=== PATIENT | female | born 1995 | race Caucasian/White ===

== ENCOUNTER 2022-05-27 15:18 | Emergency (ER) | payer OTHER ==
[2022-05-27] MEDS ORDERED: Dexameth. Sod Phosp. 10 MG/ML (CHEMO USE ONLY) ONE (16:32)
[2022-05-27] MEDS ORDERED: Ketorolac Tromethamine 30 MG/ML VIAL ONE (16:32)
[2022-05-27] MEDS ORDERED: Benzocaine 20% Spray 60 ML CAN ONE (16:46)
== END 2022-05-27 16:54 | disposition home or self-care (01) ==
LOC: ERS 15:18
DX: J02.0 Streptococcal pharyngitis (principal)
CPT/HCPCS: 87081; 87430; 87804; 96372; 99283; J1100; J1885